=== PATIENT | female | born 1955 ===

== ENCOUNTER 2020-02-28 16:45 | Emergency (ER) | payer SELFPAY ==
[~2020-02-28] VITALS: Ht 162.6 cm; Wt 68.2 kg
[2020-02-28 16:56] VITALS: BP 138/94
== END 2020-02-28 16:56 | disposition left against medical advice (07) ==
LOC: EMS 16:45
DX: R56.9 Unspecified convulsions (principal); Z53.21 Procedure and treatment not carried out due to patient leaving prior to being seen by health care provider